=== PATIENT | male | born 1980 | race Caucasian/White ===

== ENCOUNTER 2023-06-17 14:13 | Emergency (ER) | payer MEDICAID, OTHER ==
[~2023-06-17] VITALS: Ht 172.7 cm; Wt 71.0 kg
[2023-06-17 14:31] VITALS: O2SAT 94
[2023-06-17] MEDS ORDERED: SODIUM CHLORIDE 0.9% 1,000 ML IV ONE (15:15)
[2023-06-17 16:30] LABS: BASOPHILS % 0.6 % (0.0-2.0); HEMATOCRIT. 44.2 % (42.0-52.0); MEAN CORPUSCULAR HEMOGLOBIN 29.7 pg (28.0-32.0); MEAN CORPUSCULAR HGB CONC 33.8 g/dL (31.0-37.0); MEAN CORPUSCULAR VOLUME 87.6 fL (80.0-94.0); MEAN PLATELET VOLUME 9.1 fl (7.4-10.4); MONOCYTES % 9.8 % (2.0-8.0); NEUTROPHILS % 75.6 % (40.0-76.0); PLATELET 299 x1000/uL (130-400); RED BLOOD CELL COUNT 5.04 mill/uL (4.7-6.1); RED CELL DISTRIBUTION WIDTH 12.9 % (11.6-14.6)
[2023-06-17 16:41] LABS: CHLORIDE 110 mEq/L (98-107); INDEX HEMOLYSI 1 (1-3); INDEX ICTERIC 1 (1-4); INDEX LIPEMIC 1 (1-3); POTASSIUM 4.4 mEq/L (3.5-5.1); SODIUM 138 mEq/L (136-145)
[2023-06-17 16:51] LABS: INDEX HEMOLYSI 2 (1-3)
[2023-06-17 16:53] LABS: ALANINE AMINOTRANSFERASE 44 IU/L (13-61); ALBUMIN 3.3 g/dL (3.4-5.0); ASPARTATE AMINOTRANSFERASE 56 IU/L (15-37); BILIRUBIN TOTAL 0.4 mg/dL (0.1-1.0); CALCIUM 8.3 mg/dL (8.5-10.1); CARBON DIOXIDE 25 mEq/L (21-32); CREATININE 1.1 mg/dL (0.6-1.3); ETHANOL BLOOD < 10 mg/dL (-10); GLUCOSE 110 mg/dL (70-105); PROTEIN TOTAL 7.1 g/dL (6.0-8.3); TROPONIN I HIGH SENSITIVITY 7 ng/L (<78); UREA NITROGEN BLOOD 28 mg/dL (7-21)
[2023-06-17 17:06] LABS: AMMONIA 46 uMol/L (<32)
[2023-06-17] MEDS ORDERED: LACTULOSE 20G/30ML UDC PO ONE (17:45)
[2023-06-18 06:00] VITALS: BP 131/89; PULSE 82; RESP 15; TEMP 97.4
== END 2023-06-18 06:10 | disposition short-term general hospital (02) ==
LOC: ER 14:39 → CANBEDREQ 06-19
DX: R45.6 Violent behavior (principal); R41.82 Altered mental status, unspecified; K76.82 Hepatic encephalopathy; F41.9 Anxiety disorder, unspecified; I10 Essential (primary) hypertension; F20.9 Schizophrenia, unspecified; Z86.73 Personal history of transient ischemic attack (TIA), and cerebral infarction without residual deficits; Z20.822 Contact with and (suspected) exposure to COVID-19
CPT/HCPCS: 80053; 80320; 82140; 82962; 85025; 84484; 36415; 71045; 70450; 93005; 96360; 96361; 99285; 87426; J7030; C9803; Z7610 ×2; G0480